=== PATIENT | female | born 1970 | race Caucasian/White ===

== ENCOUNTER 2017-05-02 09:41 | Emergency (ER) | payer OTHER ==
[~2017-05-02] VITALS: Ht 165.1 cm; Wt 74.8 kg
[~2017-05-02 09:41] MED LIST: COMPAZINE10 M1 PO; K-DUR/KLOR-CON20 MEQ PO; LO-DOSE ASA81 MG PO; OMEPRAZOLE20 MG PO; PRILOSEC20 MG/CAP PO; WARFARIN5 MG PO
[2017-05-02 10:15] LABS: HEMATOCRIT 39.3 % (37.0-47.0); HEMOGLOBIN 13.9 g/dl (12.0-16.0); IMMATURE GRANULOCYTES 0.3 % (0.0-1.0); MEAN CORPUSCULAR HGB 29.7 pG CALC (26.0-32.0); MEAN CORPUSCULAR HGB CONC 35.4 g/L CALC (32.0-36.0); NEUT# 10.57 thou/uL (2.00-7.15); RED BLOOD COUNT 4.68 mill/uL (4.20-5.60); RED CELL DISTRI WIDTH 13.2 % (11.5-15.5)
[2017-05-02 10:36] LABS: ALBUMIN 5.2 g/dL (3.2-5.0); BILIRUBIN, TOTAL 0.8 mg/dL (0.0-1.4); CALCIUM 10.9 mg/dL (8.4-10.2); CREATININE 1.3 mg/dL (0.5-1.0); POTASSIUM 3.3 mmol/l (3.5-5.1); TOTAL PROTEIN 9.2 g/dL (6.3-8.2)
[2017-05-02 11:57] LABS: URINE BILIRUBIN - DIPSTICK NEGATIVE (NEGATIVE); URINE BLOOD DIPSTICK MODERATE (NEGATIVE); URINE COLOR YELLOW; URINE GLUCOSE - DIPSTICK NEGATIVE (NEGATIVE); URINE KETONE 15 mg/dL (NEGATIVE); URINE LEUK ESTERASE NEGATIVE (NEGATIVE); URINE NITRITE - DIPSTICK NEGATIVE (Negative); URINE PROTEIN - DIPSTICK 30 mg/dL (NEG-TRACE); URINE SPECIFIC GRAVITY 1.015; URINE UROBILINOGEN - DIPSTICK 0.2 E.U./dL (0.2)
[2017-05-02 11:58] LABS: URINE CLARITY HAZY
[2017-05-02 12:00] LABS: URINE EPITHELIAL CELLS FEW EPI/hpf (0-FEW); URINE MUCUS MODERATE hpf (NONE-FEW)
[2017-05-02 12:09] VITALS: BP 165/85
[2017-05-02] MEDS ORDERED: ZOFRAN4 M1 PO (12:09)
[2017-05-03] MEDS ORDERED: PROZAC20 MG PO (15:18)
[2017-05-03] MEDS ORDERED: AMLODIPINE5 MG PO (15:19)
[2017-05-03] MEDS ORDERED: FOLIC ACID1 MG PO (15:20)
[2017-05-03] MEDS ORDERED: CETIRIZINE10 MG PO (15:20)
== END 2017-05-02 12:19 | disposition home or self-care (01) | DRG 392 ==
LOC: ED 09:41
PROVIDERS: Family Medicine
DX: K52.9 Noninfective gastroenteritis and colitis, unspecified (principal)

== ENCOUNTER 2017-05-03 12:54 | Observation (INO) | payer OTHER ==
[~2017-05-03] VITALS: Ht 165.1 cm; Wt 71.4 kg
[~2017-05-03 12:54] MED LIST changes: +ZOFRAN4 M1 PO
[2017-05-03 13:41] LABS: HEMATOCRIT 43.3 % (37.0-47.0); HEMOGLOBIN 15.3 g/dl (12.0-16.0); IMMATURE GRANULOCYTES 0.8 % (0.0-1.0); MEAN CELL VOLUME 84.9 fL CALC (80.0-100.0); MEAN CORPUSCULAR HGB CONC 35.3 g/L CALC (32.0-36.0); NEUT# 12.89 thou/uL (2.00-7.15); RED BLOOD COUNT 5.1 mill/uL (4.20-5.60); RED CELL DISTRI WIDTH 13.2 % (11.5-15.5)
[2017-05-03 13:59] LABS: ALBUMIN 5.2 g/dL (3.2-5.0); BILIRUBIN, TOTAL 1.2 mg/dL (0.0-1.4); CALCIUM 10.8 mg/dL (8.4-10.2); CREATININE 1.8 mg/dL (0.5-1.0); POTASSIUM 2.7 mmol/l (3.5-5.1); TOTAL PROTEIN 9.8 g/dL (6.3-8.2)
[2017-05-03] MEDS ORDERED: PROZAC20 MG PO (15:18)
[2017-05-03] MEDS ORDERED: AMLODIPINE5 MG PO (15:19)
[2017-05-03] MEDS ORDERED: FOLIC ACID1 MG PO (15:20)
[2017-05-03] MEDS ORDERED: CETIRIZINE10 MG PO (15:20)
[2017-05-03 17:03] VITALS: BP 177/99
[2017-05-03 19:00] VITALS: BP 174/102
[2017-05-03 20:45] VITALS: BP 155/94
[2017-05-03 23:26] VITALS: BP 149/82
[2017-05-04] VITALS (7 sets, daily range): BP systolic 121–196; BP diastolic 53–110
[2017-05-04 05:47] LABS: HEMATOCRIT 39.8 % (37.0-47.0); HEMOGLOBIN 13.4 g/dl (12.0-16.0); IMMATURE GRANULOCYTES 0.4 % (0.0-1.0); MEAN CELL VOLUME 88.1 fL CALC (80.0-100.0); MEAN CORPUSCULAR HGB 29.6 pG CALC (26.0-32.0); MEAN CORPUSCULAR HGB CONC 33.7 g/L CALC (32.0-36.0); NEUT# 11.21 thou/uL (2.00-7.15); RED BLOOD COUNT 4.52 mill/uL (4.20-5.60); RED CELL DISTRI WIDTH 13.6 % (11.5-15.5)
[2017-05-04 05:53] LABS: ANION GAP 15 (6-22 (CALC)); BUN 16 mg/dL (7-17); BUN/CREATININE RATIO 14 (12-20 (CALC)); CALCIUM 9.2 mg/dL (8.4-10.2); CARBON DIOXIDE 27 mmol/l (22-30); CHLORIDE 105 mmol/l (95-108); CREATININE 1.1 mg/dL (0.5-1.0); GFR 53 ML/MIN (>=60 (CALC)); GFR FOR AFR.AMER. > 60 ML/MIN (>=60 (CALC)); GLUCOSE 112 mg/dL (65-105); POTASSIUM 3.7 mmol/l (3.5-5.1); SODIUM 142 mmol/l (137-146)
[2017-05-05 04:00] VITALS: BP 112/75
[2017-05-05 07:20] LABS: HEMATOCRIT 39.6 % (37.0-47.0); HEMOGLOBIN 13.2 g/dl (12.0-16.0); IMMATURE GRANULOCYTES 0.3 % (0.0-1.0); MEAN CELL VOLUME 89.2 fL CALC (80.0-100.0); MEAN CORPUSCULAR HGB 29.7 pG CALC (26.0-32.0); MEAN CORPUSCULAR HGB CONC 33.3 g/L CALC (32.0-36.0); NEUT# 5.51 thou/uL (2.00-7.15); RED BLOOD COUNT 4.44 mill/uL (4.20-5.60); RED CELL DISTRI WIDTH 13.7 % (11.5-15.5)
[2017-05-05 07:37] LABS: CALCIUM 8.9 mg/dL (8.4-10.2); CREATININE 1.2 mg/dL (0.5-1.0); POTASSIUM 3.4 mmol/l (3.5-5.1)
[2017-05-05 08:50] VITALS: BP 154/78
[2017-05-05] MEDS ORDERED: PANTOPRAZOLE SO40 M1 PO (10:25)
[2017-05-05] MEDS ORDERED: AMLODIPINE5 MG PO (10:25)
[2017-05-05] MEDS ORDERED: LORAZEPAM0.5 MG PO (10:25)
[2017-05-05 11:26] VITALS: BP 168/101
[2017-05-05 12:04] VITALS: BP 172/101
== END 2017-05-05 13:10 | disposition home or self-care (01) | DRG 683 ==
LOC: ED 12:54 → ED-I 15:23 → ED 15:46 → MS2 15:47
PROVIDERS: Emergency Medicine; Nurse Practitioner Family; ADMIT Internal Medicine; ATTEND Internal Medicine
DX: N17.9 Acute kidney failure, unspecified (principal); K51.90 Ulcerative colitis, unspecified, without complications; I12.9 Hypertensive chronic kidney disease with stage 1 through stage 4 chronic kidney disease, or unspecified chronic kidney disease; E86.0 Dehydration; E87.6 Hypokalemia; E78.5 Hyperlipidemia, unspecified; N18.9 Chronic kidney disease, unspecified; F12.90 Cannabis use, unspecified, uncomplicated; F41.8 Other specified anxiety disorders; K80.20 Calculus of gallbladder without cholecystitis without obstruction; Z87.891 Personal history of nicotine dependence
CPT/HCPCS: G0378; S0164

== ENCOUNTER 2021-08-11 15:42 | Observation (INO) | payer OTHER ==
[~2021-08-11] VITALS: Ht 165.1 cm; Wt 87.2 kg
[~2021-08-11 15:42] MED LIST changes: +AMLODIPINE5 MG PO; +CETIRIZINE10 MG PO; +FOLIC ACID1 MG PO; +LORAZEPAM0.5 MG PO; +PANTOPRAZOLE SO40 M1 PO; +PROZAC20 MG PO
[2021-08-11 16:03] LABS: HEMATOCRIT 38.9 % (37.0-47.0); HEMOGLOBIN 13.2 g/dl (12.0-16.0); IMMATURE GRANULOCYTES 0.3 % (0.0-5.0); MEAN CELL VOLUME 86.6 fL CALC (80.0-100.0); MEAN CORPUSCULAR HGB 29.4 pG CALC (26.0-32.0); MEAN CORPUSCULAR HGB CONC 33.9 g/dL CAL (32.0-36.0); NEUT# 4.82 thou/uL (2.00-7.15); RED BLOOD COUNT 4.49 mill/uL (4.20-5.60); RED CELL DISTRI WIDTH 12.6 % (11.5-15.5)
[2021-08-11 17:01] LABS: ALBUMIN 4.2 g/dL (3.2-5.0); ALKALINE PHOSPHATASE 90 u/l (38-126); BUN 19 mg/dL (7-17); BUN/CREATININE RATIO 13 (12-20 (CALC)); CARBON DIOXIDE 27 mmol/l (22-30); CHLORIDE 100 mmol/l (95-108); CREATININE 1.5 mg/dL (0.5-1.0); GFR 37 ML/MIN (>=60 (CALC)); GFR FOR AFR.AMER. 44 ML/MIN (>=60 (CALC)); SGOT/AST 23 u/l (14-36); SODIUM 135 mmol/l (137-146)
[2021-08-11 17:02] LABS: ANION GAP 12 (6-22 (CALC)); BILIRUBIN, TOTAL 0.5 mg/dL (0.0-1.4); POTASSIUM 4.1 mmol/l (3.5-5.1); TOTAL PROTEIN 7.8 g/dL (6.3-8.2)
[2021-08-11 17:07] LABS: PROTHROMBIN TIME 10.4 SECONDS (9.0-12.5)
[2021-08-11] MEDS ORDERED: FLUOXETINE10 MG PO (19:35)
[2021-08-11] MEDS ORDERED: NORVASC5 M1 PO (19:35)
[2021-08-11] MEDS ORDERED: PRAVASTATIN SOD20 MG PO (19:35)
[2021-08-11 20:15] VITALS: BP 131/78
[2021-08-12] VITALS: BP 120/66
[2021-08-12 04:00] VITALS: BP 119/73
[2021-08-12 08:30] LABS: URINE BILIRUBIN - DIPSTICK NEGATIVE (NEGATIVE); URINE BLOOD DIPSTICK TRACE-INTACT (NEGATIVE); URINE COLOR YELLOW; URINE GLUCOSE - DIPSTICK NEGATIVE (NEGATIVE); URINE KETONE NEGATIVE (NEGATIVE); URINE LEUK ESTERASE NEGATIVE (NEGATIVE); URINE NITRITE - DIPSTICK NEGATIVE (Negative); URINE PROTEIN - DIPSTICK NEGATIVE (NEG-TRACE); URINE UROBILINOGEN - DIPSTICK 0.2 E.U./dL (0.2)
[2021-08-12 10:35] VITALS: BP 117/73
[2021-08-12 16:18] VITALS: BP 107/72
[2021-08-12 19:00] VITALS: BP 108/56
[2021-08-12 23:59] VITALS: BP 102/55
[2021-08-13 04:09] VITALS: BP 118/75
[2021-08-13 04:11] VITALS: BP 97/55
[2021-08-13 05:35] LABS: HEMATOCRIT 36.3 % (37.0-47.0); HEMOGLOBIN 12.2 g/dl (12.0-16.0); MEAN CELL VOLUME 88.5 fL CALC (80.0-100.0); MEAN CORPUSCULAR HGB 29.8 pG CALC (26.0-32.0); MEAN CORPUSCULAR HGB CONC 33.6 g/dL CAL (32.0-36.0); RED BLOOD COUNT 4.1 mill/uL (4.20-5.60); RED CELL DISTRI WIDTH 12.6 % (11.5-15.5)
[2021-08-13 05:46] LABS: PROTHROMBIN TIME 10.8 SECONDS (9.0-12.5)
[2021-08-13 06:02] LABS: CREATININE 1.7 mg/dL (0.5-1.0); MAGNESIUM 1.9 mg/dL (1.6-2.3); POTASSIUM 3.8 mmol/l (3.5-5.1)
[2021-08-13 08:00] VITALS: BP 127/73
[2021-08-13 11:51] VITALS: BP 167/70
[2021-08-13] MEDS ORDERED: KEPPRA500 M2 PO (13:53)
[2021-08-13] MEDS ORDERED: WARFARIN5 MG PO (13:53)
[2021-08-13] MEDS ORDERED: LOVENOX 8080 MG/0.8 SC (13:53)
== END 2021-08-13 14:25 | disposition home or self-care (01) ==
LOC: ED 15:42 → ED-I 17:00 → ED 17:17 → MS2 17:18
PROVIDERS: Family Medicine; Nurse Practitioner; ADMIT Internal Medicine; ATTEND Internal Medicine
DX: G45.9 Transient cerebral ischemic attack, unspecified (principal); D68.59 Other primary thrombophilia; I12.9 Hypertensive chronic kidney disease with stage 1 through stage 4 chronic kidney disease, or unspecified chronic kidney disease; N18.4 Chronic kidney disease, stage 4 (severe); I69.351 Hemiplegia and hemiparesis following cerebral infarction affecting right dominant side; I69.398 Other sequelae of cerebral infarction; G40.909 Epilepsy, unspecified, not intractable, without status epilepticus; E78.5 Hyperlipidemia, unspecified; Z87.891 Personal history of nicotine dependence; Z20.822 Contact with and (suspected) exposure to COVID-19
CPT/HCPCS: G0378; J1650; J1953; J3101; Q9967

== ENCOUNTER 2022-04-07 14:32 | Inpatient (IN) | payer OTHER ==
[2022-04-07] VITALS (19 sets, daily range): BP systolic 106–130; BP diastolic 48–102
[~2022-04-07] VITALS: Ht 12.7 cm; Wt 86.4 kg
[~2022-04-07 14:32] MED LIST changes: +FLUOXETINE10 MG PO; +KEPPRA500 M2 PO; +LOVENOX 8080 MG/0.8 SC; +NORVASC5 M1 PO; +PRAVASTATIN SOD20 MG PO
[2022-04-07 14:56] LABS: HEMATOCRIT 37.4 % (37.0-47.0); HEMOGLOBIN 12.5 g/dl (12.0-16.0); IMMATURE GRANULOCYTES 0.3 % (0.0-5.0); MEAN CELL VOLUME 88.4 fL CALC (80.0-100.0); MEAN CORPUSCULAR HGB 29.6 pG CALC (26.0-32.0); MEAN CORPUSCULAR HGB CONC 33.4 g/dL CAL (32.0-36.0); NEUT# 10.45 thou/uL (2.00-7.15); RED BLOOD COUNT 4.23 mill/uL (4.20-5.60); RED CELL DISTRI WIDTH 12.8 % (11.5-15.5)
[2022-04-07 15:23] LABS: ALBUMIN 4.5 g/dL (3.2-5.0); BILIRUBIN, TOTAL 0.2 mg/dL (0.0-1.4); CREATININE 1.5 mg/dL (0.5-1.0); POTASSIUM 3.7 mmol/l (3.5-5.1); TOTAL PROTEIN 7.3 g/dL (6.3-8.2)
[2022-04-07 16:15] LABS: URINE BILIRUBIN - DIPSTICK NEGATIVE (NEGATIVE); URINE BLOOD DIPSTICK MODERATE (NEGATIVE); URINE COLOR YELLOW; URINE GLUCOSE - DIPSTICK NEGATIVE (NEGATIVE); URINE KETONE NEGATIVE (NEGATIVE); URINE LEUK ESTERASE NEGATIVE (NEGATIVE); URINE PROTEIN - DIPSTICK 30 mg/dL (NEG-TRACE); URINE SPECIFIC GRAVITY >=1.030; URINE UROBILINOGEN - DIPSTICK 0.2 E.U./dL (0.2)
[2022-04-07 16:17] LABS: URINE NITRITE - DIPSTICK NEGATIVE (Negative); URINE SQUAMOUS EPITHELIAL CELL FEW EPI/hpf (0-FEW); URINE WBC 0-2 WBC/hpf (0-5)
[2022-04-08] VITALS (7 sets, daily range): BP systolic 96–118; BP diastolic 59–66
[2022-04-08 05:47] LABS: HEMATOCRIT 31.2 % (37.0-47.0); HEMOGLOBIN 10.3 g/dl (12.0-16.0); IMMATURE GRANULOCYTES 0.3 % (0.0-5.0); MEAN CELL VOLUME 89.1 fL CALC (80.0-100.0); MEAN CORPUSCULAR HGB 29.4 pG CALC (26.0-32.0); NEUT# 5.08 thou/uL (2.00-7.15); RED BLOOD COUNT 3.5 mill/uL (4.20-5.60)
[2022-04-08 06:22] LABS: CREATININE 1.4 mg/dL (0.5-1.0); POTASSIUM 3.7 mmol/l (3.5-5.1); TOTAL PROTEIN 5.9 g/dL (6.3-8.2)
[2022-04-08 06:23] LABS: ALBUMIN 3.4 g/dL (3.2-5.0); BILIRUBIN, TOTAL 0.3 mg/dL (0.0-1.4)
[2022-04-08] MEDS ORDERED: ROWEEPRA500 MG (10:34)
[2022-04-08 11:41] LABS: INTERNATIONAL NORMALIZED RATIO 1.8 RATIO (0.7-1.3); PROTHROMBIN TIME 17.5 SECONDS (9.0-12.5)
[2022-04-09] VITALS (10 sets, daily range): BP systolic 106–151; BP diastolic 61–91
[2022-04-09 05:19] LABS: HEMATOCRIT 29.7 % (37.0-47.0); IMMATURE GRANULOCYTES 0.2 % (0.0-5.0); MEAN CELL VOLUME 87.4 fL CALC (80.0-100.0); MEAN CORPUSCULAR HGB 29.4 pG CALC (26.0-32.0); MEAN CORPUSCULAR HGB CONC 33.7 g/dL CAL (32.0-36.0); NEUT# 2.49 thou/uL (2.00-7.15); RED BLOOD COUNT 3.4 mill/uL (4.20-5.60); RED CELL DISTRI WIDTH 13.1 % (11.5-15.5)
[2022-04-09 05:22] LABS: INTERNATIONAL NORMALIZED RATIO 1.8 RATIO (0.7-1.3); PROTHROMBIN TIME 17.2 SECONDS (9.0-12.5)
[2022-04-09 05:36] LABS: ALBUMIN 3.1 g/dL (3.2-5.0); BILIRUBIN, TOTAL 0.3 mg/dL (0.0-1.4); CREATININE 1.7 mg/dL (0.5-1.0); MAGNESIUM 1.9 mg/dL (1.6-2.3); POTASSIUM 3.3 mmol/l (3.5-5.1); TOTAL PROTEIN 5.6 g/dL (6.3-8.2)
[2022-04-10] VITALS (11 sets, daily range): BP systolic 127–145; BP diastolic 75–85
[2022-04-10 05:18] LABS: HEMATOCRIT 32.6 % (37.0-47.0); HEMOGLOBIN 10.8 g/dl (12.0-16.0); IMMATURE GRANULOCYTES 0.2 % (0.0-5.0); MEAN CELL VOLUME 89.6 fL CALC (80.0-100.0); MEAN CORPUSCULAR HGB 29.7 pG CALC (26.0-32.0); MEAN CORPUSCULAR HGB CONC 33.1 g/dL CAL (32.0-36.0); NEUT# 2.99 thou/uL (2.00-7.15); RED BLOOD COUNT 3.64 mill/uL (4.20-5.60); RED CELL DISTRI WIDTH 13.3 % (11.5-15.5)
[2022-04-10 05:25] LABS: CREATININE 1.5 mg/dL (0.5-1.0); MAGNESIUM 1.8 mg/dL (1.6-2.3); POTASSIUM 3.4 mmol/l (3.5-5.1)
[2022-04-10 08:01] LABS: INTERNATIONAL NORMALIZED RATIO 1.4 RATIO (0.7-1.3)
[2022-04-11] VITALS (7 sets, daily range): BP systolic 114–136; BP diastolic 55–75
[2022-04-11 04:42] LABS: HEMATOCRIT 32.3 % (37.0-47.0); HEMOGLOBIN 10.8 g/dl (12.0-16.0); IMMATURE GRANULOCYTES 0.2 % (0.0-5.0); MEAN CELL VOLUME 88.5 fL CALC (80.0-100.0); MEAN CORPUSCULAR HGB 29.6 pG CALC (26.0-32.0); MEAN CORPUSCULAR HGB CONC 33.4 g/dL CAL (32.0-36.0); NEUT# 2.69 thou/uL (2.00-7.15); RED BLOOD COUNT 3.65 mill/uL (4.20-5.60); RED CELL DISTRI WIDTH 13.3 % (11.5-15.5)
[2022-04-11 04:47] LABS: CREATININE 1.4 mg/dL (0.5-1.0); POTASSIUM 3.2 mmol/l (3.5-5.1)
[2022-04-11 08:17] LABS: INTERNATIONAL NORMALIZED RATIO 1.5 RATIO (0.7-1.3); PROTHROMBIN TIME 15.1 SECONDS (9.0-12.5)
[2022-04-12] VITALS (7 sets, daily range): BP systolic 116–142; BP diastolic 62–83
[2022-04-12 05:30] LABS: HEMOGLOBIN 11.3 g/dl (12.0-16.0); IMMATURE GRANULOCYTES 0.2 % (0.0-5.0); MEAN CELL VOLUME 88.3 fL CALC (80.0-100.0); MEAN CORPUSCULAR HGB 29.4 pG CALC (26.0-32.0); MEAN CORPUSCULAR HGB CONC 33.2 g/dL CAL (32.0-36.0); NEUT# 2.89 thou/uL (2.00-7.15); RED BLOOD COUNT 3.85 mill/uL (4.20-5.60); RED CELL DISTRI WIDTH 13.2 % (11.5-15.5)
[2022-04-12 05:43] LABS: PROTHROMBIN TIME 19.5 SECONDS (9.0-12.5)
[2022-04-12 05:48] LABS: ALBUMIN 3.2 g/dL (3.2-5.0); BILIRUBIN, TOTAL 0.2 mg/dL (0.0-1.4); CREATININE 1.4 mg/dL (0.5-1.0); POTASSIUM 3.2 mmol/l (3.5-5.1); TOTAL PROTEIN 5.7 g/dL (6.3-8.2)
[2022-04-13 03:41] VITALS: BP 115/73
[2022-04-13 04:54] LABS: HEMATOCRIT 36.5 % (37.0-47.0); HEMOGLOBIN 12.1 g/dl (12.0-16.0); IMMATURE GRANULOCYTES 0.2 % (0.0-5.0); MEAN CELL VOLUME 88.8 fL CALC (80.0-100.0); MEAN CORPUSCULAR HGB 29.4 pG CALC (26.0-32.0); MEAN CORPUSCULAR HGB CONC 33.2 g/dL CAL (32.0-36.0); NEUT# 3.46 thou/uL (2.00-7.15); RED BLOOD COUNT 4.11 mill/uL (4.20-5.60); RED CELL DISTRI WIDTH 13.6 % (11.5-15.5)
[2022-04-13 05:12] LABS: INTERNATIONAL NORMALIZED RATIO 2.1 RATIO (0.7-1.3); PROTHROMBIN TIME 20.1 SECONDS (9.0-12.5)
[2022-04-13 05:18] LABS: ALBUMIN 3.3 g/dL (3.2-5.0); BILIRUBIN, TOTAL 0.2 mg/dL (0.0-1.4); CREATININE 1.5 mg/dL (0.5-1.0); MAGNESIUM 1.8 mg/dL (1.6-2.3); TOTAL PROTEIN 5.8 g/dL (6.3-8.2)
[2022-04-13 05:21] LABS: POTASSIUM 3.7 mmol/l (3.5-5.1)
[2022-04-13 06:56] VITALS: BP 137/75
[2022-04-13 10:25] VITALS: BP 125/78
[2022-04-13 15:43] VITALS: BP 120/75
== END 2022-04-13 16:47 | disposition home or self-care (01) | DRG 815 ==
LOC: ED 14:32 → ED-I 17:50 → ED 18:23 → MS2 18:24
PROVIDERS: Internal Medicine; Nurse Practitioner; ADMIT Internal Medicine; ATTEND Internal Medicine
DX: D72.829 Elevated white blood cell count, unspecified (principal); N18.4 Chronic kidney disease, stage 4 (severe); E87.2 Acidosis; R50.9 Fever, unspecified; D68.59 Other primary thrombophilia; I12.9 Hypertensive chronic kidney disease with stage 1 through stage 4 chronic kidney disease, or unspecified chronic kidney disease; F14.10 Cocaine abuse, uncomplicated; F10.10 Alcohol abuse, uncomplicated; E87.6 Hypokalemia; K44.9 Diaphragmatic hernia without obstruction or gangrene; E78.5 Hyperlipidemia, unspecified; I69.398 Other sequelae of cerebral infarction; G40.909 Epilepsy, unspecified, not intractable, without status epilepticus; F41.8 Other specified anxiety disorders; T42.6X6A Underdosing of other antiepileptic and sedative-hypnotic drugs, initial encounter; Z91.128 Patient's intentional underdosing of medication regimen for other reason; Z87.891 Personal history of nicotine dependence; Z20.822 Contact with and (suspected) exposure to COVID-19
CPT/HCPCS: Q3014; Q9967